=== PATIENT | male | born 1990 ===

== ENCOUNTER → 2019-10-12 | Outpatient (CLI) | payer SELFPAY | PROVIDERS: Family Provider Nurse Practitioner; Visit Provider Surgery | DX: R10.9 Unspecified abdominal pain (principal) | CPT/HCPCS: 81003 ==

== ENCOUNTER 2020-10-30 20:00 | Outpatient (CLI) | payer OTHER, SELFPAY | END 2020-10-30 20:01 | disposition home or self-care (01) | LOC: SLEEP 10-31 09:00 | PROVIDERS: Family Provider Nurse Practitioner; PCP Nurse Practitioner; Visit Provider Nurse Practitioner Family | DX: G47.33 Obstructive sleep apnea (adult) (pediatric) (principal) | CPT/HCPCS: 95810 ==